=== PATIENT | female | born 1985 | race Hispanic/Latino ===

== ENCOUNTER 2018-05-24 00:02 | Inpatient (IN) | payer BC, OTHER, SELFPAY ==
[2018-05-24 00:29] LABS: #Basophils 0.1 thou/uL (0.0-0.2); #Lymphocytes 1.8 thou/uL (1.20-3.40); #Monocytes 0.3 thou/uL (0.11-0.59); %Basophils 0.8 % (0.0-1.0); %Eosinophils 0.6 % (0.0-10.0); %Lymphocytes 22.1 % (21.0-51.0); %Monocytes 3.9 % (0.0-10.0); %Neutrophils 72.6 % (42.0-75.0); Hemoglobin 15.3 g/dL (12.0-16.0); Mean Corpuscular HGB CONC 34.2 g/dL (32.0-36.0); Mean Corpuscular Hemoglobin 29.7 pg (27.0-31.0); Mean Corpuscular Volume 86.9 fL (78.0-98.0); Mean Platelet Volume 9.1 fL (7.4-10.4); Platelet Count 404 thou/uL (130-400); RBC Distribution Width 12.2 % (11.5-14.5); Red Blood Cell (RBC) Count 5.17 mill/uL (4.20-5.40); White Blood Cell (WBC) Count 8.3 thou/uL (4.8-10.8)
[2018-05-24 00:48] LABS: ALT (SGPT) 8 U/L (8-55); AST (SGOT) 9 U/L (5-34); Albumin 4.3 g/dL (3.5-5.0); Alkaline Phosphatase 75 U/L (40-150); BUN (Urea Nitrogen) 8 mg/dL (7.0-18.7); Bilirubin, Total 0.8 mg/dL (0.2-1.2); Calc. Creatinine Clearance 0 mL/min (70-130); Calcium 8.5 mg/dL (7.8-10.44); Chloride 109 mmol/L (98-107); Estimated GFR-MDRD 64; Globulin 3.6 g/dL (2.4-3.5); Glucose 459 mg/dL (70-105); Potassium 3.1 mmol/L (3.5-5.1); Protein, Total 7.9 g/dL (6.0-8.3); Sodium 132 mmol/L (136-145)
[2018-05-24 00:53] LABS: CKMB 0.5 ng/mL (0-6.6); Troponin I Less than 0.010 ng/mL (< 0.028)
[2018-05-24 00:55] LABS: Carbon Dioxide Less than 8 mmol/L (22-29)
[2018-05-24 01:57] LABS: Base Excess-Venous -21.6 mmol/L (0 (+/- 2.5)); Bicarbonate (HCO3v) 5.1 mmol/L (1.0-85.0); Calcium, Ionized 1.16 mmol/L (1.12-1.32); Hemoglobin - Calc 14.2 g/dL (12.0-18.0); O2 Tension (PvO2) 49.4 mmHg (35.0-45.0); Potassium 6.1 mmol/L (3.4-4.7); T. Carbon Dioxide 5.6 mmol/L (1.0-85.0); pH (Venous) 7.142 (7.35-7.45); vO2 Saturation-calc 74.2 % (94-98)
[2018-05-24] MEDS ORDERED: Insulin Regular 300 UNITS/3 ML VIAL ONE (02:11)
[2018-05-24] MEDS ORDERED: Ondansetron PF 4 MG/2 ML Vial ONE ×2 (02:12→02:17)
[2018-05-24] MEDS ORDERED: Insulin Regular 100 units/100 ml in NS IVPB SCH (02:15)
[2018-05-24] MEDS ORDERED: Sodium Chloride 0.9% 1,000 ML IV PRN ×4 (02:55)
[2018-05-24] MEDS ORDERED: Dextrose 5 %-0.45 % NaCl 1,000 ML IV PRN (02:55)
[2018-05-24] MEDS ORDERED: NS 0.9% w/ 20 MEQ KCL 1,000 ML IV PRN (02:55)
[2018-05-24] MEDS ORDERED: CCU Electrolyte Replacement 1 EACH IVPB SCH (02:55)
[2018-05-24] MEDS ORDERED: Magnesium 2 GM/NS 0.9% 100 ML 2 GM in Premix Bag 1 BAG IVPB PRN (03:13)
[2018-05-24] MEDS ORDERED: Magnesium Oxide 400 MG TAB PO PRN ×2 (03:13)
[2018-05-24] MEDS ORDERED: CCU ELECTROLYTE REPLACEMENT PROTOCOL FS PRN (03:13)
[2018-05-24] MEDS ORDERED: Potassium Phosphate 9 MMOL in Sodium Chloride 0.9% 100 ML IVPB PRN (03:13)
[2018-05-24] MEDS ORDERED: Potassium Phosphate 12 MMOL in Sodium Chloride 0.9% 250 ML 250 ML IV PRN (03:13)
[2018-05-24 03:36] LABS: #Basophils 0.1 thou/uL (0.0-0.2); #Eosinphils 0.1 thou/uL (0.0-0.7); #Lymphocytes 2.3 thou/uL (1.20-3.40); #Monocytes 0.5 thou/uL (0.11-0.59); #Neutrophils 6.3 thou/uL (1.40-6.50); %Basophils 0.8 % (0.0-1.0); %Eosinophils 0.7 % (0.0-10.0); %Lymphocytes 25.1 % (21.0-51.0); %Monocytes 5.3 % (0.0-10.0); Mean Corpuscular Hemoglobin 30.3 pg (27.0-31.0); Mean Corpuscular Volume 84.4 fL (78.0-98.0); Mean Platelet Volume 8.8 fL (7.4-10.4); Platelet Count 364 thou/uL (130-400); Red Blood Cell (RBC) Count 4.62 mill/uL (4.20-5.40); White Blood Cell (WBC) Count 9.2 thou/uL (4.8-10.8)
[2018-05-24 03:49] LABS: BUN (Urea Nitrogen) 6 mg/dL (7.0-18.7); Calc. Creatinine Clearance 0 mL/min (70-130); Calcium 7.8 mg/dL (7.8-10.44); Chloride 115 mmol/L (98-107); Estimated GFR-MDRD 85; Glucose 290 mg/dL (70-105); Magnesium 1.9 mg/dL (1.6-2.6); Sodium 136 mmol/L (136-145)
[2018-05-24 03:56] LABS: Carbon Dioxide Less than 8 mmol/L (22-29); Phosphorus Less than 1.0 mg/dL (2.3-4.7); Potassium 2.7 mmol/L (3.5-5.1)
[2018-05-24] MEDS: NS 0.9% w/ 20 MEQ KCL 1,000 ML IV PRN ×3 (04:05→09:35)
[2018-05-24 04:30] VITALS: BMI 29.5
--- NOTE | 2018-05-24 07:23 | HP ---
PRIMARY CARE PHYSICIAN: Mikie Benavides. CODE STATUS: FULL CODE. TIME OF EVALUATION: 3:00 a.m. CHIEF COMPLAINT: Shortness of breath. HISTORY OF PRESENT ILLNESS: This is a 33-year-old female patient with past medical history of gestational diabetes, came to the hospital after having shortness of breath for the past few days that has been getting worse, on and off, with no clear triggers, no alleviating factors, associated with polydipsia and polyuria. Symptoms are reported as severe, no other symptoms were reported. The patient did have an eye infection on the right eye about a week ago and was treated with antibiotics by an outside doctor. The patient also reported associated epigastric pain. REVIEW OF SYSTEMS: Constitutional: No fever or chills. The patient did report generalized weakness. Respiratory: The patient reported shortness of breath. No cough, no sputum production. Cardiovascular: No chest pain or palpitation. Gastrointestinal: The patient has some nausea. No vomiting, no diarrhea. She did report abdominal pain. Central nervous system: No dizziness , headache, or feeling lightheaded. Genitourinary: No burning on urination. Extremities: No leg swelling. All other systems reviewed were negative except for the findings mentioned above. PAST MEDICAL HISTORY: As mentioned in the HPI. FAMILY HISTORY: Reviewed and noncontributory for current presentation. PAST SURGICAL HISTORY: The patient has a history of x4. PSYCHIATRIC HISTORY: No previous psychiatric history. SOCIAL HISTORY: Lives at home with family. No alcohol, no drugs, and no smoking history. ALLERGIES: Known allergies to ACETAMINOPHEN. REPORTED MEDICATIONS: None. PHYSICAL EXAMINATION: VITAL SIGNS: On presentation, blood pressure 137/85 with heart rate 109, respiratory rate was 30, temperature 97.9. GENERAL APPEARANCE: The patient is alert and oriented, in no acute distress. HEENT: Eyes, normal conjunctivae. Dry oral mucosa. Anicteric. NECK: No JVD. RESPIRATORY: Bilateral air entry. No rales, no wheezing. Symmetric expansion. CARDIOVASCULAR: Normal rate, regular rhythm. No murmurs, no gallop, no edema. ABDOMEN: Soft, normal bowel sounds. MUSCULOSKELETAL: Baseline range of motion and strength. No tenderness. SKIN: Warm and intact. No pallor, no rash, and no redness. EXTREMITIES: Peripheral pulses are present. Capillary refill seems to be intact. NEUROLOGIC: No evidence of any new focal weakness. Baseline speech. Cranial nerves seem to be intact. PSYCHIATRIC: The patient is in good mood. No anxiety. Oriented, optimal judgment. IMAGING STUDIES: Chest x-ray was done and report seems normal. No significant cardiopulmonary abnormalities. No bone fractures. It was reviewed by myself. LABORATORY DATA: Labs were reviewed. The patient has white count 9.3, hemoglobin 15, MCV 86, platelet count 404. Coagulations 0.61. Blood gas (VBG) , pH 7.14. Chemistry: Sodium 132, potassium 3.1, chloride 109, carbon dioxide less than 8, BUN 8, creatinine 0.9, GFR 64, glucose 159, serum osmolality 310, calcium 8.5. LFTs were normal. Troponin negative. Beta hydroxybutyrate is 7.35. ASSESSMENT AND PLAN: The patient will be placed in the ICU for the following medical problems. Critical care time more than 35 minutes in the bedside assessment, reviewing elaboration of records, consideration of medication, plan of care. 1. DKA, the patient has been placed on DKA protocol, insulin drip, aggressive hydration, monitor BMP q.4 hours, will monitor magnesium and phosphorus and replace electrolytes as needed. 2. Hypokalemia, likely secondary to potassium depletion, will replace electrolytes as per ICU protocol. 3. Deep venous thrombosis prophylaxis. MTDD
[2018-05-24 08:04] LABS: Anion Gap 11 mmol/L (10-20); BUN (Urea Nitrogen) 5 mg/dL (7.0-18.7); Calc. Creatinine Clearance 169 mL/min (70-130); Calcium 7.2 mg/dL (7.8-10.44); Chloride 120 mmol/L (98-107); Estimated GFR-MDRD Greater than 90; Glucose 135 mg/dL (70-105); Sodium 136 mmol/L (136-145)
[2018-05-24 08:08] LABS: Carbon Dioxide 8 mmol/L (22-29); Potassium 2.7 mmol/L (3.5-5.1)
--- NOTE | 2018-05-24 08:30 | RAD ---
CHEST 1 VIEW: HISTORY: A 33-year-old female with a history of worsening tachycardia, chest pain, and shortness of breath. COMPARISON: 10/20/2010. FINDINGS: Heart size is normal. The lungs are clear. No pneumonia, edema, or pleural effusion. IMPRESSION: No acute intrathoracic disease. POS: [facility]
[2018-05-24] MEDS ORDERED: Enoxaparin Sodium 40 MG/0.4 ML SYRINGE SC SCH (09:00)
[2018-05-24] MEDS: D5 1/2 NS w/20 mEq KCL 1,000 ML IV PRN ×5 (09:02→23:15)
[2018-05-24] MEDS: Potassium Chloride 20 MEQ TAB PO PRN (09:03)
--- NOTE | 2018-05-24 09:30 | PDOC.PN ---
- Subjective Encounter Start Date: 05/24/18 (f/u DKA) Encounter Start Time: 09:27 Subjective: Pt reports feeling better - denies any further n/v/abd pain/sob -: denies any new sx - Objective Resuscitation Status: Resuscitation Status FULL:Full Resuscitation Vital Signs & Weight: Vital Signs (12 hours) Temp Pulse Resp BP Pulse Ox 05/24/18 07:34 98.2 F 84 20 105/61 100 05/24/18 03:05 98.5 F 92 20 118/74 100 Weight Weight 177 lb 8 oz I&O: 05/23/18 05/24/18 05/25/18 06:59 06:59 06:59 Intake Total 1823.5 Output Total 1600 Balance 223.5 Result Diagrams: 05/24/18 03:24 05/24/18 06:50 Additional Labs: Accuchecks 05/24/18 05/24/18 05/24/18 08:16 07:11 06:08 POC Glucose 86 114 H 166 H 05/24/18 05/24/18 05/24/18 05:01 04:06 02:53 POC Glucose 196 H 200 H 310 H 05/24/18 05/24/18 02:09 01:07 POC Glucose 381 H 434 H EKG Reviewed by me: Yes (tele - sinus 80-90's) Phys Exam - Physical Examination Constitutional: NAD Respiratory: no wheezing, no rales, no rhonchi, clear to auscultation bilateral Cardiovascular: RRR, no significant murmur Gastrointestinal: soft, non-tender, no distention, positive bowel sounds Musculoskeletal: no edema, pulses present Neurological: non-focal, moves all 4 limbs Psychiatric: normal affect, A&O x 3 Skin: no rash Dx/Plan (1) DKA (diabetic ketoacidoses) Code(s): E13.10 - OTH DIABETES MELLITUS WITH KETOACIDOSIS WITHOUT COMA Status : Acute Qualifiers: Diabetes mellitus complication detail: without coma (2) Hypokalemia Code(s): E87.6 - HYPOKALEMIA Status: Acute - Plan * New onset type 1 DM with DKA * - continue the insulin gtt and fluid replacement as gap is currently at 8 * ditch inspector consult * insulin teaching * * hypokalemia -on replacement - received oral this morning and receiving IV potassium with fluids * * ambulate as tolerated * resume diet when gtt is off * * pt without health insurance or PCP - case management consult * will likely need 70/30 insulin due to affordability - when ready to come off the gtt * * dvt prophy - change to scd's * gi prophy- not indicated * code status full * * reviewed plan of care with patient, no questions or further needs at end of eval. * pt remains at high risk in current condition
[2018-05-24] MEDS ORDERED: ISOVUE-370 76%-LOCM 1 ML ONE (10:26)
[2018-05-24 11:41] LABS: BUN (Urea Nitrogen) 4 mg/dL (7.0-18.7); Calc. Creatinine Clearance 169 mL/min (70-130); Calcium 7.1 mg/dL (7.8-10.44); Chloride 120 mmol/L (98-107); Estimated GFR-MDRD Greater than 90; Glucose 113 mg/dL (70-105); Sodium 138 mmol/L (136-145)
[2018-05-24 11:45] LABS: Carbon Dioxide Less than 8 mmol/L (22-29)
--- NOTE | 2018-05-24 16:01 | CT ---
PRELIMINARY REPORT/[facility]/EMERGENTY AFTER-HOURS PROCEDURE CT Angiography Chest With Intravenous Contrast EXAM DATE/TIME: 05/24/2018 3:00 AM CLINICAL HISTORY: 33 years old, female; Pain; Chest pressure; Patient HX: R/O pe, no priors, C/O several days of worsen ing tachypnea, cp and SOB as well as polydipsia and polyuria w/ h/o gdm but no other HX. No fevers, n o systemic SX otherwise. TECHNIQUE: Axial computed tomographic angiography images of the chest with intravenous contrast using CT angiogr aphy protocol. MIP reconstructed images were created and reviewed. COMPARISON: No relevant prior studies available. FINDINGS: Pulmonary arteries: No pulmonary emboli. Aorta: Normal. No aortic aneurysm. No aortic dissection. Lungs: Normal. No consolidation. No masses. Pleural space: Normal. No pneumothorax. No pleural effusion. Heart: Normal. No cardiomegaly. No pericardial effusion. Mediastinum: Small-sized hiatal hernia. Gallbladder and bile ducts: Cholelithiasis, without CT evidence of acute cholecystitis. Lymph nodes: Unremarkable. No enlarged lymph nodes. Bones/joints: Unremarkable. No acute fracture. Soft tissues: Unremarkable. IMPRESSION: No pulmonary emboli. Thank you for allowing us to participate in the care of your patient. Dictated and Authenticated by: Bobby Calix MD 05/24/2018 3:18 AM Central Time ([place] & [place]) FINAL REPORT CT ANGIOGRAM CHEST WITH 3D RENDERING: EMERGENT AFTER HOURS EXAM FINDINGS: No CT evidence for acute pulmonary embolism. Small hiatal hernia. Cholelithiasis without evidence f or acute cholecystitis. POS: [facility]
[2018-05-24] MEDS ORDERED: Ibuprofen 200 MG TAB PO PRN (16:29)
--- NOTE | 2018-05-24 16:31 | PDOC.EVN ---
Event Note - Event Note Event Note: Called RN - pt c/o headache - and has an allergy to acetaminophen - ordering prn ibuprofen, change diet to carb consistent clear liquids such as broth, and start famotidine for now due to the ibuprofen. BMP ordered now as well as q6h to monitor anion gap.
[2018-05-24 17:04] LABS: Anion Gap 9 mmol/L (10-20); BUN (Urea Nitrogen) Less than 4 mg/dL (7.0-18.7); Calc. Creatinine Clearance 161 mL/min (70-130); Carbon Dioxide 12 mmol/L (22-29); Chloride 118 mmol/L (98-107); Estimated GFR-MDRD Greater than 90; Glucose 243 mg/dL (70-105); Sodium 136 mmol/L (136-145)
[2018-05-24 17:09] LABS: Potassium 2.8 mmol/L (3.5-5.1)
[2018-05-24] MEDS: Potassium Chloride 40 MEQ in Premix Bag 1 BAG IVPB PRN ×2 (17:21→23:16)
[2018-05-24] MEDS: Potassium Chloride 40 MEQ in Sodium Chloride 0.9% 250 ML 250 ML IVPB PRN (17:47)
[2018-05-24] MEDS: Famotidine 20 MG TAB PO SCH (20:31)
[2018-05-24] MEDS: Ondansetron PF 4 MG/2 ML Vial IVP PRN (20:31)
[2018-05-24 22:35] LABS: Anion Gap 9 mmol/L (10-20); BUN (Urea Nitrogen) Less than 4 mg/dL (7.0-18.7); Calc. Creatinine Clearance 178 mL/min (70-130); Calcium 7.3 mg/dL (7.8-10.44); Carbon Dioxide 14 mmol/L (22-29); Chloride 114 mmol/L (98-107); Estimated GFR-MDRD Greater than 90; Glucose 229 mg/dL (70-105); Sodium 134 mmol/L (136-145)
[2018-05-24 22:37] LABS: Potassium 2.7 mmol/L (3.5-5.1)
[2018-05-25] MEDS: Ondansetron PF 4 MG/2 ML Vial IVP PRN ×2 (04:00→15:43)
[2018-05-25] MEDS: D5 1/2 NS w/20 mEq KCL 1,000 ML IV PRN ×5 (04:01→21:19)
[2018-05-25 06:11] LABS: Anion Gap 8 mmol/L (10-20); BUN (Urea Nitrogen) Less than 4 mg/dL (7.0-18.7); Calc. Creatinine Clearance 208 mL/min (70-130); Calcium 7.5 mg/dL (7.8-10.44); Carbon Dioxide 18 mmol/L (22-29); Chloride 112 mmol/L (98-107); Estimated GFR-MDRD Greater than 90; Glucose 168 mg/dL (70-105); Magnesium 1.7 mg/dL (1.6-2.6); Sodium 135 mmol/L (136-145)
[2018-05-25 06:14] LABS: Phosphorus Less than 1.0 mg/dL (2.3-4.7); Potassium 2.6 mmol/L (3.5-5.1)
[2018-05-25] MEDS: Potassium Chloride 40 MEQ in Sodium Chloride 0.9% 250 ML 250 ML IVPB PRN (06:44)
[2018-05-25] MEDS: Famotidine 20 MG TAB PO SCH ×3 (08:12→21:20)
[2018-05-25] MEDS: Potassium Phosphate 15 MMOL in Sodium Chloride 0.9% 250 ML 250 ML IV PRN ×2 (10:42→21:52)
[2018-05-25 11:55] LABS: Anion Gap 9 mmol/L (10-20); BUN (Urea Nitrogen) Less than 4 mg/dL (7.0-18.7); Calc. Creatinine Clearance 207 mL/min (70-130); Calcium 7.7 mg/dL (7.8-10.44); Carbon Dioxide 17 mmol/L (22-29); Chloride 111 mmol/L (98-107); Estimated GFR-MDRD Greater than 90; Glucose 218 mg/dL (70-105); Potassium 3.3 mmol/L (3.5-5.1); Sodium 134 mmol/L (136-145)
--- NOTE | 2018-05-25 13:08 | PDOC.PN ---
- Subjective Encounter Start Date: 05/25/18 Encounter Start Time: 09:50 -: old records requested/rev Pt seen and examined, chart reviewed in its entirety, this is my first visit with this patient Follow up for new Dx DM2, DKA, hypokalemia, met acidosis No F/C, some Nausea, no V/D/C, no CP or SOB All systems reviewed and neg except as above - Objective Resuscitation Status: Resuscitation Status FULL:Full Resuscitation MAR Reviewed: Yes Vital Signs & Weight: Vital Signs (12 hours) Temp Pulse Resp BP Pulse Ox 05/25/18 11:20 97.8 F 82 16 113/83 05/25/18 08:00 100 05/25/18 07:47 99.0 F 80 16 109/82 100 05/25/18 04:00 98.8 F 78 17 108/75 100 Weight Weight 180 lb I&O: 05/24/18 05/25/18 05/26/18 06:59 06:59 06:59 Intake Total 1823.5 4624 Output Total 1600 1100 Balance 223.5 3524 Result Diagrams: 05/24/18 03:24 05/25/18 10:27 Additional Labs: Accuchecks 05/25/18 05/25/18 05/25/18 12:11 10:55 09:56 POC Glucose 251 H 224 H 215 H 05/25/18 05/25/18 05/25/18 08:55 08:18 07:09 POC Glucose 166 H 144 H 134 H 05/25/18 05/25/18 05/25/18 06:03 05:22 04:06 POC Glucose 155 H 160 H 168 H 05/25/18 05/25/18 05/25/18 03:12 02:40 01:11 POC Glucose 226 H 236 H 207 H 05/25/18 05/24/18 05/24/18 00:05 23:14 22:05 POC Glucose 211 H 220 H 203 H 05/24/18 05/24/18 05/24/18 21:12 20:24 19:27 POC Glucose 210 H 194 H 223 H 05/24/18 05/24/18 05/24/18 18:42 17:29 16:10 POC Glucose 184 H 197 H 226 H 05/24/18 05/24/18 05/24/18 15:20 14:12 13:03 POC Glucose 224 H 208 H 164 H 05/24/18 09:11 POC Glucose 85 Radiology Reviewed by me: Yes EKG Reviewed by me: Yes Phys Exam - Physical Examination Constitutional: NAD HEENT: PERRLA, moist MMs, sclera anicteric, oral pharynx no lesions Neck: no nodes, no JVD, supple, full ROM Respiratory: no wheezing, no rales, no rhonchi, clear to auscultation bilateral Cardiovascular: RRR, no significant murmur Gastrointestinal: soft, non-tender, no distention, positive bowel sounds Musculoskeletal: no edema, pulses present Neurological: non-focal, normal sensation, moves all 4 limbs Lymphatic: no nodes Psychiatric: normal affect, A&O x 3 Skin: no rash, normal turgor, cap refill <2 seconds Dx/Plan (1) New onset type 2 diabetes mellitus Code(s): E11.9 - TYPE 2 DIABETES MELLITUS WITHOUT COMPLICATIONS Status: Acute Comment: new diagnosis. Dietary has seen. CCM until gap closed. on DKA protocol (2) Hypophosphatemia Code(s): E83.39 - OTHER DISORDERS OF PHOSPHORUS METABOLISM Status: Acute Comment: replace (3) DKA (diabetic ketoacidoses) Code(s): E13.10 - OTH DIABETES MELLITUS WITH KETOACIDOSIS WITHOUT COMA Status : Acute Qualifiers: Diabetes mellitus type: type 2 Diabetes mellitus complication detail: without coma Qualified Code(s): E11.10 - Type 2 diabetes mellitus with ketoacidosis without coma (4) Hypokalemia Code(s): E87.6 - HYPOKALEMIA Status: Acute - Plan cont current plan of care, PT/OT, manager social, out of bed/ambulate * .
[2018-05-25 20:34] LABS: Phosphorus Less than 1.0 mg/dL (2.3-4.7)
[2018-05-26] MEDS: D5 1/2 NS w/20 mEq KCL 1,000 ML IV PRN ×3 (01:24→10:08)
[2018-05-26 05:09] LABS: Anion Gap 12 mmol/L (10-20); BUN (Urea Nitrogen) Less than 4 mg/dL (7.0-18.7); Calc. Creatinine Clearance 181 mL/min (70-130); Calcium 7.8 mg/dL (7.8-10.44); Carbon Dioxide 19 mmol/L (22-29); Chloride 110 mmol/L (98-107); Estimated GFR-MDRD Greater than 90; Glucose 215 mg/dL (70-105); Sodium 138 mmol/L (136-145)
[2018-05-26 05:17] LABS: Phosphorus 1.2 mg/dL (2.3-4.7)
[2018-05-26] MEDS: Ondansetron PF 4 MG/2 ML Vial IVP PRN (10:08)
[2018-05-26] MEDS: Famotidine 20 MG TAB PO SCH ×2 (10:08→20:50)
[2018-05-26] MEDS: Potassium Chloride 40 MEQ in Sodium Chloride 0.9% 250 ML 250 ML IVPB PRN (10:20)
[2018-05-26 13:36] LABS: Phosphorus 1.9 mg/dL (2.3-4.7)
[2018-05-26] MEDS ORDERED: Dextrose 5% in Water 1,000 ML IV PRN (14:34)
[2018-05-26] MEDS ORDERED: Dextrose 50% Abboject 50 ML SYRINGE SLOW IVP PRN (14:34)
--- NOTE | 2018-05-26 14:35 | PDOC.PN ---
- Subjective Encounter Start Date: 05/26/18 Encounter Start Time: 10:00 follow up for newly Dx DM2, DKA, obesity, hypophosphatemia and hypokalemia No F/C, no N/V/d/C, no CP, no SOB, no cough or sputum nauseated this AM, but overall better. All systems reviewed and neg x as above - Objective 05/26/18 11:59 Resuscitation Status Routine Resuscitation Status: FULL: Full Resuscitation MAR Reviewed: Yes Vital Signs & Weight: Vital Signs (12 hours) Temp Pulse Resp BP Pulse Ox 05/26/18 12:00 98.8 F 84 21 H 107/70 98 05/26/18 08:00 100 05/26/18 07:51 98.2 F 82 19 106/72 100 05/26/18 04:00 98.5 F 81 18 104/79 100 Weight Weight 180 lb I&O: 05/25/18 05/26/18 05/27/18 06:59 06:59 06:59 Intake Total 4624 7863 Output Total 1100 6480 Balance 3524 1383 Result Diagrams: 05/27/18 04:39 05/27/18 04:39 Additional Labs: Accuchecks 05/26/18 05/26/18 05/26/18 14:05 13:07 12:04 POC Glucose 244 H 247 H 162 H 05/26/18 05/26/18 05/26/18 11:14 10:11 09:21 POC Glucose 121 H 110 178 H 05/26/18 05/26/18 05/26/18 08:03 07:04 06:11 POC Glucose 186 H 193 H 194 H 05/26/18 05/26/18 05/26/18 05:09 04:20 03:04 POC Glucose 186 H 208 H 203 H 05/26/18 05/26/18 05/25/18 01:16 00:19 23:06 POC Glucose 160 H 134 H 148 H 05/25/18 05/25/18 05/25/18 21:59 21:04 20:02 POC Glucose 166 H 261 H 202 H 05/25/18 05/25/18 05/25/18 18:54 18:20 17:09 POC Glucose 215 H 205 H 213 H 05/25/18 15:15 POC Glucose 239 H Phys Exam - Physical Examination Constitutional: NAD HEENT: PERRLA, moist MMs, sclera anicteric, oral pharynx no lesions Neck: no nodes, no JVD, supple, full ROM Respiratory: no wheezing, no rales, no rhonchi, clear to auscultation bilateral Cardiovascular: RRR, no significant murmur Gastrointestinal: soft, non-tender, no distention, positive bowel sounds Musculoskeletal: no edema, pulses present Neurological: non-focal, normal sensation, moves all 4 limbs Lymphatic: no nodes Psychiatric: normal affect, A&O x 3 Skin: no rash, normal turgor, cap refill <2 seconds Dx/Plan (1) New onset type 2 diabetes mellitus Code(s): E11.9 - TYPE 2 DIABETES MELLITUS WITHOUT COMPLICATIONS Status: Acute Comment: new diagnosis. Dietary has seen. to long acting insulin (2) Hypophosphatemia Code(s): E83.39 - OTHER DISORDERS OF PHOSPHORUS METABOLISM Status: Acute Comment: replace (3) DKA (diabetic ketoacidoses) Code(s): E13.10 - OTH DIABETES MELLITUS WITH KETOACIDOSIS WITHOUT COMA Status : Acute Qualifiers: Diabetes mellitus type: type 2 Diabetes mellitus complication detail: without coma Qualified Code(s): E11.10 - Type 2 diabetes mellitus with ketoacidosis without coma (4) Hypokalemia Code(s): E87.6 - HYPOKALEMIA Status: Acute - Plan * .
[2018-05-26] MEDS ORDERED: Insulin Glargine 50 UNITS in Pre-Filled Syringe 1 EACH SC SCH (15:00)
[2018-05-26] MEDS: HumaLOG 300 UNITS/3 ML VIAL SC PRN (16:26)
[2018-05-26 18:04] LABS: Potassium 2.9 mmol/L (3.5-5.1)
[2018-05-26] MEDS: Potassium Chloride 20 MEQ TAB PO PRN (18:19)
[2018-05-26] MEDS: Insulin Glargine 50 UNITS in Pre-Filled Syringe 1 EACH SC SCH (20:59)
[2018-05-26 22:17] LABS: Potassium 3.2 mmol/L (3.5-5.1)
[2018-05-27 05:26] LABS: Anion Gap 10 mmol/L (10-20); BUN (Urea Nitrogen) Less than 4 mg/dL (7.0-18.7); Calc. Creatinine Clearance 195 mL/min (70-130); Calcium 8.2 mg/dL (7.8-10.44); Carbon Dioxide 24 mmol/L (22-29); Chloride 108 mmol/L (98-107); Estimated GFR-MDRD Greater than 90; Glucose 139 mg/dL (70-105); Magnesium 1.8 mg/dL (1.6-2.6); Phosphorus 2.3 mg/dL (2.3-4.7); Sodium 139 mmol/L (136-145)
[2018-05-27 05:42] LABS: Band 1 % (5-11); Eosinophils 3 % (0-10); Hemoglobin 13.8 g/dL (12.0-16.0); Lymphocytes 48 % (21-51); MDiff Complete? YES; Mean Corpuscular HGB CONC 34.9 g/dL (32.0-36.0); Mean Corpuscular Hemoglobin 30.2 pg (27.0-31.0); Mean Corpuscular Volume 86.4 fL (78.0-98.0); Monocytes 16 % (0-10); Myelocyte 1 % (0-0); Neutrophil 31 % (42-75); Nucleated RBC 1 % (0); Platelet Count 259 thou/uL (130-400); RBC Distribution Width 12.8 % (11.5-14.5); Red Blood Cell (RBC) Count 4.56 mill/uL (4.20-5.40); White Blood Cell (WBC) Count 5.2 thou/uL (4.8-10.8)
[2018-05-27] MEDS: Potassium Chloride 20 MEQ TAB PO PRN (06:35)
[2018-05-27] MEDS: Insulin Glargine 50 UNITS in Pre-Filled Syringe 1 EACH SC SCH (09:43)
[2018-05-27] MEDS: Famotidine 20 MG TAB PO SCH ×2 (09:43→20:31)
[2018-05-27] MEDS: HumaLOG 300 UNITS/3 ML VIAL SC PRN ×2 (11:08→16:23)
[2018-05-27] MEDS: Potassium Chloride 20 MEQ TAB PO SCH ×3 (11:24→20:31)
--- NOTE | 2018-05-27 14:03 | PDOC.PN ---
- Subjective Encounter Start Date: 05/27/18 Encounter Start Time: 14:00 follow up for new Dx DM2, DKa, low K+ and phos No F/C, no N/V/d/C, no CP, no SOB, no cough or sputum clive po, surgars well controlled with current regimen All systems reviewed and neg x as above - Objective Resuscitation Status - Order Detail: 05/26/18 11:59 Resuscitation Status Routine Resuscitation Status: FULL: Full Resuscitation MAR Reviewed: Yes Vital Signs & Weight: Vital Signs (12 hours) Temp Pulse Resp BP Pulse Ox 05/27/18 11:07 99.1 F 16 111/73 05/27/18 08:00 97 05/27/18 07:35 98.6 F 67 18 104/82 100 05/27/18 03:57 98.5 F 73 18 104/76 100 Weight Weight 180 lb I&O: 05/26/18 05/27/18 05/28/18 06:59 06:59 06:59 Intake Total 7863 2362.6 Output Total 6480 900 Balance 1383 1462.6 Result Diagrams: 05/27/18 04:39 05/27/18 04:39 Additional Labs: Accuchecks 05/27/18 05/27/18 05/27/18 10:36 05:42 04:13 POC Glucose 214 H 124 H 126 H 05/26/18 05/26/18 05/26/18 20:18 16:00 14:05 POC Glucose 124 H 174 H 244 H Phys Exam - Physical Examination Constitutional: NAD HEENT: PERRLA, moist MMs, sclera anicteric, oral pharynx no lesions Neck: no nodes, no JVD, supple, full ROM Respiratory: no wheezing, no rales, no rhonchi, clear to auscultation bilateral Cardiovascular: RRR, no significant murmur, no rub Gastrointestinal: soft, non-tender, no distention, positive bowel sounds Musculoskeletal: no edema Neurological: non-focal, normal sensation, moves all 4 limbs Lymphatic: no nodes Psychiatric: normal affect, A&O x 3 Skin: no rash, normal turgor, cap refill <2 seconds Dx/Plan (1) New onset type 2 diabetes mellitus Code(s): E11.9 - TYPE 2 DIABETES MELLITUS WITHOUT COMPLICATIONS Status: Acute Comment: new diagnosis. Dietary has seen. to long acting insulin (2) Hypophosphatemia Code(s): E83.39 - OTHER DISORDERS OF PHOSPHORUS METABOLISM Status: Acute Comment: replace (3) DKA (diabetic ketoacidoses) Code(s): E13.10 - OTH DIABETES MELLITUS WITH KETOACIDOSIS WITHOUT COMA Status : Acute Qualifiers: Diabetes mellitus type: type 2 Diabetes mellitus complication detail: without coma Qualified Code(s): E11.10 - Type 2 diabetes mellitus with ketoacidosis without coma (4) Hypokalemia Code(s): E87.6 - HYPOKALEMIA Status: Acute - Plan * .
[2018-05-27 15:35] LABS: Potassium 4.1 mmol/L (3.5-5.1)
[2018-05-27] MEDS: Insulin NPH/Reg Insulin Hm 300 UNITS/3 ML VIAL SC SCH (16:28)
[2018-05-28] MEDS: Insulin NPH/Reg Insulin Hm 300 UNITS/3 ML VIAL SC SCH (08:36)
[2018-05-28] MEDS: Famotidine 20 MG TAB PO SCH (08:36)
[2018-05-28 11:17] VITALS: BP 99/72; TEMP 98.4
--- NOTE | 2018-05-30 18:39 | EKG ---
Test Reason : Blood Pressure : / mmHG Vent. Rate : 106 BPM Atrial Rate : 106 BPM P-R Int : 146 ms QRS Dur : 076 ms QT Int : 358 ms P-R-T Axes : 042 -09 001 degrees QTc Int : 475 ms Sinus tachycardia Possible Left atrial enlargement Low voltage QRS Abnormal ECG Confirmed by ROXANA IVAN DO ([id number]), rewrite editor KATHERINE LENZ ([id number]) on 05/30/2018 6:39:22 PM Referred By: Confirmed By:ROXANA IVAN DO
== END 2018-05-28 12:47 | disposition home or self-care (01) | DRG 639 ==
LOC: ERS 00:02 → IMCU/EMU 02:28
PROVIDERS: ADMIT Hospitalist; ATTEND Hospitalist
DX: E11.10 Type 2 diabetes mellitus with ketoacidosis without coma (principal); Z88.8 Allergy status to other drugs, medicaments and biological substances; E87.6 Hypokalemia; E83.39 Other disorders of phosphorus metabolism; E66.9 Obesity, unspecified; R51 Headache; Z68.29 Body mass index [BMI] 29.0-29.9, adult
CPT/HCPCS: 36415; 36416; 71045; 71275; 80048; 80053; 82010; 82330; 82553; 82803; 83690; 83735; 83930; 84100; 84484; 85025; 85379; 93005; 94760; 96361; 96365; 96374; 96375; J1650; J1815; J2405; J3475; J3480; J7050

== ENCOUNTER 2025-06-15 09:53 | Emergency (ER) | payer BC ==
[2025-06-15] MEDS ORDERED: Iopamidol 370 76% 100 ML VIAL ONE (10:14)
[2025-06-15 10:21] LABS: #Basophils 0.08 10x3/uL (0.0-0.2); #Eosinophils 0.28 10x3/uL (0.0-0.7); #Monocytes 0.40 10x3/uL (0.11-0.59); #Neutrophils 3.17 10x3/uL (1.40-6.50); %Basophils 1.3 % (0.0-1.0); %Eosinophils 4.7 % (0.0-10.0); %Lymphocytes 33.2 % (21.0-51.0); %Monocytes 6.7 % (0.0-10.0); %Neutrophils 53.6 % (42.0-75.0); Hematocrit 36.5 % (36.0-47.0); Hemoglobin 12.1 g/dL (12.0-16.0); Mean Corpuscular Hemoglobin 25.1 pg (27.0-31.0); Mean Corpuscular Volume 75.6 fL (78.0-98.0); Platelet Count 347 10x3/uL (130-400); Red Blood Cell (RBC) Count 4.83 mill/uL (4.20-5.40); White Blood Cell (WBC) Count 5.93 10x3/uL (4.8-10.8)
[2025-06-15 10:40] LABS: ALT (SGPT) 19 U/L (Less than 34); AST (SGOT) 19 U/L (11-34); Albumin 3.7 g/dL (3.1-4.5); Alkaline Phosphatase 58 U/L (40-110); Anion Gap 14 mmol/L (10-20); BUN (Urea Nitrogen) 9 mg/dL (7.0-18.7); Bilirubin, Total 0.6 mg/dL (0.3-1.2); Calc. Creatinine Clearance 0 mL/min (70-130); Calcium 9.0 mg/dL (7.8-10.44); Carbon Dioxide 18 mmol/L (22-29); Chloride 108 mmol/L (98-107); Globulin 3.5 g/dL (2.4-3.5); Glucose 221 mg/dL (70-105); Lipase 56 U/L (8-78); Potassium 4.1 mmol/L (3.5-5.1); Sodium 136 mmol/L (136-145)
[2025-06-15 11:26] LABS: Pregnancy Test - Urine (BHCG) Negative (Negative); Pregu Control Background? CLEAR/WHITE (CLR/WHITE); Pregu Control Bar Appear? YES (CONTROL BAR)
[2025-06-15 11:35] LABS: Bacteria/HPF 1+ HPF (None Seen); CAUTI Indications for Culture Pelvic or flank pain; Glucose, Urine (Dipstick) Greater than 1000 mg/dL (Negative); Leukocyte 250 Leu/uL (Negative); Protein, Urine (Dipstick) Negative (Neg-Trace); Specific Gravity, Urine 1.023 (1.002-1.036)
[2025-06-15 11:36] LABS: Urine Culture Reflex No No
== END 2025-06-15 14:50 | disposition home or self-care (01) ==
LOC: ERS 09:53
DX: K80.20 Calculus of gallbladder without cholecystitis without obstruction (principal); N39.0 Urinary tract infection, site not specified
CPT/HCPCS: 74177; 76705; 80053; 81001; 81025; 83690; 85025; Q9967